=== PATIENT | male | born 1955 | race Caucasian/White ===

== ENCOUNTER 2016-10-21 20:44 | Emergency (ER) | payer OTHER ==
[2016-10-21] MEDS ORDERED: MOTRIN800 MG PO (23:20)
[2016-10-21] MEDS ORDERED: PERCOCET 5/31 TABLET PO (23:20)
[2016-10-21] MEDS ORDERED: FLEXERIL5 MG PO (23:20)
== END 2016-10-21 23:48 | disposition home or self-care (01) ==
LOC: TRA → EME 20:44 → TRA 23:48
PROC: 0HQ1XZZ Repair Face Skin, External Approach (ICD-10-PCS; principal; 2016-10-21)
DX: S09.90XA Unspecified injury of head, initial encounter (principal); S01.112A Laceration without foreign body of left eyelid and periocular area, initial encounter; S01.81XA Laceration without foreign body of other part of head, initial encounter; M62.830 Muscle spasm of back; V28.0XXA Motorcycle driver injured in noncollision transport accident in nontraffic accident, initial encounter
CPT/HCPCS: 70450; 70486; 71260; 72125; 72129; 72132; 74177; 93005; 99281; 99285; J2270; J2405